=== PATIENT | male | born 1995 | race Two or more races ===

== ENCOUNTER 2025-03-14 14:03 | Emergency (ER) | payer BC ==
[~2025-03-14] VITALS: Ht 175.3 cm; Wt 104.3 kg
[2025-03-14 16:48] VITALS: BP 128/76; TEMP 98.1; O2SAT 100
== END 2025-03-14 16:48 | disposition home or self-care (01) ==
LOC: ER 14:19
DX: J45.909 Unspecified asthma, uncomplicated (principal); F12.90 Cannabis use, unspecified, uncomplicated; R07.89 Other chest pain; F17.200 Nicotine dependence, unspecified, uncomplicated; Z88.7 Allergy status to serum and vaccine; Z60.2 Problems related to living alone